=== PATIENT | male | born 2000 | race African-American/Black ===

== ENCOUNTER 2021-10-20 15:47 | Inpatient (IN) | payer MEDICAID, SELFPAY ==
[~2021-10-20] VITALS: Ht 190.5 cm; Wt 102.7 kg
[2021-10-20] MEDS ORDERED: MORPHINE 4 MG/ML 1ML VIAL/SYRINGE (J2270) IV ONE (20:20)
[2021-10-20] MEDS ORDERED: ONDANSETRON 4MG/2ML VIAL IV ONE (20:20)
[2021-10-20] MEDS ORDERED: NS 1,000 ML IV ONE (20:20)
[2021-10-20 21:11] LABS: BASO % 0.3 % (0.0-1.0); EOS % 0.1 % (0.0-3.0); LYMPH # 1.9 10^3/uL (1.5-5.0); LYMPH % 18.8 % (24.0-44.0); MEAN CORPUSCULAR HEMOGLOBIN 30.7 pg (27.0-33.0); MEAN CORPUSCULAR HGB CONC 33.3 g/dl (32.0-36.5); MONO # 0.9 10^3/uL (0.0-0.8); MONO % 8.9 % (2.0-8.0); NEUTROPHILS # 7.1 10^3/uL (1.5-8.5); NEUTROPHILS % 71.7 % (36.0-66.0); PLATELET COUNT, AUTOMATED 222 10^3/uL (150-450); RED BLOOD COUNT 4.89 10^6/uL (4.30-6.10); WHITE BLOOD COUNT 9.9 10^3/uL (4.0-10.0)
[2021-10-20 21:19] LABS: INR 1.01; PARTIAL THROMBOPLASTIN TIME 26.5 SECONDS (25.9-37.0); PROTHROMBIN TIME 13.7 SECONDS (12.7-14.5)
[2021-10-20 21:29] LABS: BLOOD UREA NITROGEN 11 MG/DL (7-18); CALCIUM LEVEL 9.9 MG/DL (8.5-10.1); CARBON DIOXIDE LEVEL 27 MEQ/L (21-32); CHLORIDE LEVEL 105 MEQ/L (98-107); CREATININE FOR GFR 1.01 MG/DL (0.70-1.30); GLUCOSE, FASTING 94 MG/DL (70-100); POTASSIUM SERUM 4.3 MEQ/L (3.5-5.1); SODIUM LEVEL 139 MEQ/L (136-145)
[2021-10-20] MEDS ORDERED: ACETAMINOPHEN TAB 650MG DOSE (2X325MG) PO PRN (21:45)
[2021-10-20] MEDS ORDERED: MORPHINE 2 MG/ML 1ML VIAL (J2270) IV PRN (21:45)
[2021-10-20] MEDS ORDERED: HOME MED LIST COMPLETE! XX SCH (23:00)
[2021-10-21] MEDS ORDERED: KETOROLAC 30 MG/ML 1ML VIAL IV PRN (01:50)
[2021-10-21] MEDS: MORPHINE 2 MG/ML 1ML VIAL (J2270) IV PRN ×2 (02:02→07:42)
[2021-10-21] MEDS: HEPARIN SOD (PORCINE) 5000UNITS/ML 1ML VIAL/SYRINGE SC SCH ×2 (05:16→21:33)
[2021-10-21 06:16] LABS: HEMATOCRIT 43.2 % (42.0-52.0); HEMOGLOBIN 14.4 g/dl (13.5-17.5); MEAN CORPUSCULAR HEMOGLOBIN 30.4 pg (27.0-33.0); MEAN CORPUSCULAR HGB CONC 33.3 g/dl (32.0-36.5); MEAN CORPUSCULAR VOLUME 91.1 fl (80.0-96.0); PLATELET COUNT, AUTOMATED 215 10^3/uL (150-450); RED BLOOD COUNT 4.74 10^6/uL (4.30-6.10); WHITE BLOOD COUNT 8.8 10^3/uL (4.0-10.0)
[2021-10-21 06:30] LABS: ALBUMIN 3.8 GM/DL (3.2-5.2); ALT/SGPT 35 U/L (12-78); BILIRUBIN,TOTAL 0.7 MG/DL (0.2-1.0); BLOOD UREA NITROGEN 11 MG/DL (7-18); CALCIUM LEVEL 9.3 MG/DL (8.5-10.1); CARBON DIOXIDE LEVEL 28 MEQ/L (21-32); CHLORIDE LEVEL 103 MEQ/L (98-107); CREATININE FOR GFR 0.97 MG/DL (0.70-1.30); GLUCOSE, FASTING 135 MG/DL (70-100); POTASSIUM SERUM 3.9 MEQ/L (3.5-5.1); SODIUM LEVEL 138 MEQ/L (136-145); TOTAL PROTEIN 7.2 GM/DL (6.4-8.2)
[2021-10-21] MEDS: oxyCODONE 5MG TAB PO PRN ×2 (10:51→19:38)
[2021-10-21 14:00] VITALS: BP 144/86
[2021-10-21] MEDS ORDERED: LIDOCAINE 2% 100MG/5ML SDV (FOR ANES.) As Ordered ONE (16:00)
[2021-10-21] MEDS ORDERED: ONDANSETRON 4MG/2ML VIAL As Ordered ONE (16:00)
[2021-10-21] MEDS ORDERED: propofoL 200 MG/20 ML VIAL As Ordered ONE ×2 (16:00→16:21)
[2021-10-21] MEDS ORDERED: ACETAMINOPHEN 1000MG 100ML IV BTL (OFIRMEV) (J0131 PER 10MG) As Ordered ONE ×2 (16:00→18:01)
[2021-10-21] MEDS ORDERED: dexameTHASONE 4 MG/ML 1ML VIAL (J1100 PER 1MG) As Ordered ONE (16:00)
[2021-10-21] MEDS ORDERED: KETOROLAC 60MG 2ML VIAL As Ordered ONE (16:00)
[2021-10-21] MEDS ORDERED: MIDAZOLAM INJ 2MG/2ML VIAL (J2250 PER 1MG) As Ordered ONE (16:01)
[2021-10-21] MEDS ORDERED: fentaNYL 100 MCG/2 ML INJECTION As Ordered ONE ×2 (16:01→16:43)
[2021-10-21] MEDS ORDERED: BUPIVACAINE HCL 0.25% 10ML VIAL As Ordered ONE (16:22)
[2021-10-21] MEDS ORDERED: BUPIVACAINE/EPIN 0.25% 30 ML VIAL As Ordered ONE (16:22)
[2021-10-21] MEDS ORDERED: ceFAZolin 2 GM/D5W 50 ML IV BAG (J0690 PER 500MG) As Ordered ONE (16:29)
[2021-10-21] MEDS ORDERED: HYDROmorphone HCL 2MG/ML 1ML VIAL As Ordered ONE (17:17)
[2021-10-21] MEDS ORDERED: LR 1,000 ML IV SCH (18:55)
[2021-10-21] MEDS ORDERED: fentaNYL 100 MCG/2 ML INJECTION IV PRN (18:55)
[2021-10-21] MEDS ORDERED: ONDANSETRON 4MG/2ML VIAL IV PRN (18:55)
[2021-10-21] MEDS ORDERED: oxyCODONE 5MG TAB PO PRN (18:55)
[2021-10-21 20:30] VITALS: BP 112/66
[2021-10-21 21:30] VITALS: BP 116/58
[2021-10-21 22:30] VITALS: BP 126/68
[2021-10-21 23:30] VITALS: BP 143/99
[2021-10-22] VITALS (7 sets, daily range): BP systolic 121–158; BP diastolic 74–96; O2SAT 96–97
[2021-10-22] MEDS: oxyCODONE 5MG TAB PO PRN ×3 (01:32→19:43)
[2021-10-22] MEDS: MORPHINE 2 MG/ML 1ML VIAL (J2270) IV PRN ×2 (03:01→07:42)
[2021-10-22] MEDS: HEPARIN SOD (PORCINE) 5000UNITS/ML 1ML VIAL/SYRINGE SC SCH ×3 (06:18→21:15)
[2021-10-22 07:46] LABS: BASO % 0.1 % (0.0-1.0); EOS % 0.1 % (0.0-3.0); HEMATOCRIT 41.2 % (42.0-52.0); LYMPH # 2.5 10^3/uL (1.5-5.0); LYMPH % 15.1 % (24.0-44.0); MEAN CORPUSCULAR HEMOGLOBIN 30.8 pg (27.0-33.0); MEAN CORPUSCULAR VOLUME 90.5 fl (80.0-96.0); MONO # 1.2 10^3/uL (0.0-0.8); MONO % 7.2 % (2.0-8.0); NEUTROPHILS # 12.7 10^3/uL (1.5-8.5); NEUTROPHILS % 77.2 % (36.0-66.0); PLATELET COUNT, AUTOMATED 212 10^3/uL (150-450); RED BLOOD COUNT 4.55 10^6/uL (4.30-6.10); WHITE BLOOD COUNT 16.4 10^3/uL (4.0-10.0)
[2021-10-22 08:08] LABS: BLOOD UREA NITROGEN 10 MG/DL (7-18); CALCIUM LEVEL 8.9 MG/DL (8.5-10.1); CARBON DIOXIDE LEVEL 27 MEQ/L (21-32); CHLORIDE LEVEL 102 MEQ/L (98-107); CREATININE FOR GFR 1.05 MG/DL (0.70-1.30); GLUCOSE, FASTING 116 MG/DL (70-100); MAGNESIUM LEVEL 1.9 MG/DL (1.8-2.4); POTASSIUM SERUM 3.9 MEQ/L (3.5-5.1); SODIUM LEVEL 136 MEQ/L (136-145)
[2021-10-22] MEDS: ASPIRIN 81MG ENTERIC TABLET PO SCH (09:05)
[2021-10-22] MEDS: HYDROMORPHONE HCL 0.5 MG/ 0.5 ML SYRINGE (J1170 PER 1) IV PRN ×3 (10:20→22:05)
[2021-10-23] MEDS: oxyCODONE 5MG TAB PO PRN ×2 (00:11→08:40)
[2021-10-23] MEDS: HYDROMORPHONE HCL 0.5 MG/ 0.5 ML SYRINGE (J1170 PER 1) IV PRN (02:53)
[2021-10-23 06:00] VITALS: BP 148/78
[2021-10-23] MEDS: HEPARIN SOD (PORCINE) 5000UNITS/ML 1ML VIAL/SYRINGE SC SCH (06:38)
[2021-10-23 08:01] LABS: BASO % 0.2 % (0.0-1.0); EOS % 0.2 % (0.0-3.0); HEMATOCRIT 41.3 % (42.0-52.0); HEMOGLOBIN 13.6 g/dl (13.5-17.5); LYMPH # 1.8 10^3/uL (1.5-5.0); LYMPH % 15.3 % (24.0-44.0); MEAN CORPUSCULAR HGB CONC 32.9 g/dl (32.0-36.5); MONO # 1.5 10^3/uL (0.0-0.8); MONO % 12.8 % (2.0-8.0); NEUTROPHILS # 8.2 10^3/uL (1.5-8.5); NEUTROPHILS % 70.9 % (36.0-66.0); PLATELET COUNT, AUTOMATED 201 10^3/uL (150-450); RED BLOOD COUNT 4.54 10^6/uL (4.30-6.10); WHITE BLOOD COUNT 11.6 10^3/uL (4.0-10.0)
[2021-10-23 08:25] LABS: BLOOD UREA NITROGEN 10 MG/DL (7-18); CALCIUM LEVEL 9.7 MG/DL (8.5-10.1); CARBON DIOXIDE LEVEL 26 MEQ/L (21-32); CHLORIDE LEVEL 100 MEQ/L (98-107); CREATININE FOR GFR 0.93 MG/DL (0.70-1.30); GLUCOSE, FASTING 105 MG/DL (70-100); MAGNESIUM LEVEL 2.1 MG/DL (1.8-2.4); POTASSIUM SERUM 3.9 MEQ/L (3.5-5.1); SODIUM LEVEL 134 MEQ/L (136-145)
[2021-10-23] MEDS: ASPIRIN 81MG ENTERIC TABLET PO SCH (08:39)
[2021-10-23] MEDS ORDERED: ASPI-551 PO (10:12)
[2021-10-23] MEDS ORDERED: OXYC-517 PO ×2 (10:12→10:18)
== END 2021-10-23 11:50 | disposition home health service (06) | DRG 317 ==
LOC: M ED 15:47 → M ED INP 21:41 → M MS5PR 10-21 00:05
PROVIDERS: ADMIT Family Medicine; ATTEND Internal Medicine
PROC: 0LQR0ZZ Repair Left Knee Tendon, Open Approach (ICD-10-PCS; principal; 2021-10-21 15:00)
DX: S86.812A Strain of other muscle(s) and tendon(s) at lower leg level, left leg, initial encounter (principal); W50.0XXA Accidental hit or strike by another person, initial encounter; Y93.67 Activity, basketball; Y92.830 Public park as the place of occurrence of the external cause; Z20.822 Contact with and (suspected) exposure to COVID-19; D72.829 Elevated white blood cell count, unspecified

== ENCOUNTER → 2021-10-27 | Outpatient (CLI) | payer MEDICAID ==
[~2021-10-27] MED LIST: ASPI-551 PO; ASPI81CH8 PO; CELE100C PO; HYDR-3715 PO; OXYC-517 PO; PERCOCET PO
== END ==
LOC: M SOG 15:00
PROVIDERS: ATTEND Orthopaedic Surgery
DX: Z47.89 Encounter for other orthopedic aftercare (principal); M79.89 Other specified soft tissue disorders

== ENCOUNTER 2021-12-03 01:04 | Emergency (ER) | payer MEDICAID ==
[~2021-12-03] VITALS: Ht 190.5 cm; Wt 109.1 kg
[~2021-12-03 01:04] MED LIST changes: -ASPI81CH8 PO; -CELE100C PO; -HYDR-3715 PO; -PERCOCET PO
[2021-12-03] MEDS ORDERED: HYDR-3715 PO (13:04)
[2021-12-03 13:12] VITALS: BP 135/83
== END 2021-12-03 13:40 | disposition home or self-care (01) ==
LOC: M ED 01:04
DX: M25.562 Pain in left knee (principal); M25.462 Effusion, left knee; S86.812A Strain of other muscle(s) and tendon(s) at lower leg level, left leg, initial encounter; M70.42 Prepatellar bursitis, left knee; W01.0XXA Fall on same level from slipping, tripping and stumbling without subsequent striking against object, initial encounter; Y92.009 Unspecified place in unspecified non-institutional (private) residence as the place of occurrence of the external cause; Y93.9 Activity, unspecified; Y99.9 Unspecified external cause status

== ENCOUNTER → 2021-12-07 | Outpatient (CLI) | payer MEDICAID ==
[~2021-12-07] MED LIST changes: +HYDR-3715 PO
== END ==
LOC: M LABSMTC 12:30
PROVIDERS: ATTEND Orthopaedic Surgery
DX: Z01.812 Encounter for preprocedural laboratory examination (principal); Z20.822 Contact with and (suspected) exposure to COVID-19

== ENCOUNTER 2021-12-08 11:13 | Observation (INO) | payer BC, MEDICAID ==
[~2021-12-08] VITALS: Ht 190.5 cm; Wt 121.5 kg
[~2021-12-08 11:13] MED LIST changes: +LIDOCAINE 1% MDV 20ML VIAL SQ PRN; +LIDOCAINE 2% 100MG/5ML SDV (FOR ANES.) As Ordered ONE; +MIDAZOLAM INJ 2MG/2ML VIAL (J2250 PER 1MG) As Ordered ONE; +ONDANSETRON 4MG/2ML VIAL As Ordered ONE; +ceFAZolin SOD 2 GM in IV 1 EA IV ONE; +dexameTHASONE 4 MG/ML 1ML VIAL (J1100 PER 1MG) As Ordered ONE; +fentaNYL 100 MCG/2 ML INJECTION As Ordered ONE; +propofoL 200 MG/20 ML VIAL As Ordered ONE
[2021-12-08] MEDS ORDERED: LR 1,000 ML IV ONE (12:35)
[2021-12-08] MEDS ORDERED: TRANEXAMIC ACID 100 MG/ML 10ML VIAL As Ordered ONE (13:09)
[2021-12-08] MEDS ORDERED: ACETAMINOPHEN 1000MG 100ML IV BTL (OFIRMEV) (J0131 PER 10MG) As Ordered ONE (13:10)
[2021-12-08] MEDS ORDERED: PHENYLephrine 500MCG 5ML (100MCG/ML) SYRINGE As Ordered ONE (13:18)
[2021-12-08] MEDS ORDERED: KETOROLAC 60MG 2ML VIAL As Ordered ONE (13:22)
[2021-12-08] MEDS ORDERED: fentaNYL 100 MCG/2 ML INJECTION As Ordered ONE ×2 (13:33→13:59)
[2021-12-08] MEDS ORDERED: VANCOMYCIN 1000MG/20ML VIAL As Ordered ONE (14:32)
[2021-12-08] MEDS ORDERED: HYDROmorphone HCL 2MG/ML 1ML VIAL As Ordered ONE (14:37)
[2021-12-08] MEDS ORDERED: BUPIVACAINE LIPOSOME/PF 1.3% 20ML VIAL (13.3MG/ML)(EXPAREL) As Ordered ONE (15:05)
[2021-12-08] MEDS ORDERED: BUPIVACAINE HCL 0.25% 10ML VIAL As Ordered ONE (15:08)
[2021-12-08] MEDS ORDERED: ESMOLOL INJ 100MG/10ML VIAL As Ordered ONE (15:41)
[2021-12-08] MEDS ORDERED: oxyCODONE 5MG TAB PO PRN (16:10)
[2021-12-08] MEDS ORDERED: ONDANSETRON 4MG/2ML VIAL IV PRN (16:10)
[2021-12-08] MEDS ORDERED: LR 1,000 ML IV SCH ×2 (16:10→16:20)
[2021-12-08] MEDS ORDERED: MEPERIDINE INJ 25 MG/ML VIAL (J2175) IV PRN (16:10)
[2021-12-08] MEDS: fentaNYL 100 MCG/2 ML INJECTION IV PRN ×2 (16:30→17:04)
[2021-12-08 17:25] VITALS: BP 141/86
[2021-12-08] MEDS: ACETAMINOPHEN TAB 650MG DOSE (2X325MG) PO SCH ×2 (17:38→23:28)
[2021-12-08 17:55] VITALS: BP 121/68
[2021-12-08 18:25] VITALS: BP 150/83
[2021-12-08 20:00] VITALS: BP 149/83
[2021-12-08] MEDS: ceFAZolin SOD 2 GM in IV 1 EA IV SCH (20:44)
[2021-12-08] MEDS: PERCOCET 5MG/325MG TAB PO PRN (20:56)
[2021-12-08 21:00] VITALS: BP 150/89
[2021-12-08 22:00] VITALS: BP 146/86; O2SAT 99
[2021-12-09 02:00] VITALS: BP 137/93
[2021-12-09] MEDS: MORPHINE 4 MG/ML 1ML VIAL/SYRINGE IV PRN ×2 (02:09→06:10)
[2021-12-09] MEDS: PERCOCET 5MG/325MG TAB PO PRN ×3 (05:14→22:10)
[2021-12-09] MEDS: ceFAZolin SOD 2 GM in IV 1 EA IV SCH (05:14)
[2021-12-09] MEDS: ACETAMINOPHEN TAB 650MG DOSE (2X325MG) PO SCH ×4 (05:15→23:05)
[2021-12-09 06:00] VITALS: BP 145/94
[2021-12-09] MEDS ORDERED: MORPHINE 4 MG/ML 1ML VIAL/SYRINGE IV PRN (08:40)
[2021-12-09 09:00] VITALS: O2SAT 100
[2021-12-09] MEDS ORDERED: CelecoXIB (CeleBREX) 100 MG CAP PO ONE (09:00)
[2021-12-09] MEDS: HYDROMORPHONE HCL 0.5 MG/ 0.5 ML SYRINGE (J1170 PER 1) IV PRN ×2 (10:58→17:55)
[2021-12-09] MEDS: CelecoXIB (CeleBREX) 100 MG CAP PO SCH (20:41)
[2021-12-09] MEDS: ASPIRIN 81 MG CHEW TABLET PO SCH (20:41)
[2021-12-09 21:13] VITALS: BP 145/88
[2021-12-10] MEDS: HYDROMORPHONE HCL 0.5 MG/ 0.5 ML SYRINGE (J1170 PER 1) IV PRN ×2 (00:56→08:48)
[2021-12-10] MEDS: PERCOCET 5MG/325MG TAB PO PRN ×2 (04:36→15:17)
[2021-12-10] MEDS: ACETAMINOPHEN TAB 650MG DOSE (2X325MG) PO SCH ×3 (05:44→18:22)
[2021-12-10 06:00] VITALS: BP 143/97
[2021-12-10] MEDS: CelecoXIB (CeleBREX) 100 MG CAP PO SCH (08:47)
[2021-12-10] MEDS: ASPIRIN 81 MG CHEW TABLET PO SCH (08:47)
[2021-12-10] MEDS ORDERED: ASPI81CH8 PO (09:13)
[2021-12-10] MEDS ORDERED: PERCOCET PO (09:13)
[2021-12-10] MEDS ORDERED: CELE100C PO (09:13)
[2021-12-10 14:00] VITALS: BP 142/97
== END 2021-12-10 19:00 | disposition home or self-care (01) ==
LOC: M SDC 11:13 → M MS5PR 11:14 → M SDC 12-10 19:00
PROVIDERS: ADMIT Orthopaedic Surgery; ATTEND Orthopaedic Surgery
DX: S86.812A Strain of other muscle(s) and tendon(s) at lower leg level, left leg, initial encounter (principal); X58.XXXA Exposure to other specified factors, initial encounter; Y92.89 Other specified places as the place of occurrence of the external cause; Y93.89 Activity, other specified; Y99.8 Other external cause status
CPT/HCPCS: 27380; C1713; C9290; J0131; J0690; J1100; J1170; J2250; J2270; J2370; J2405; J3010; J3370

== ENCOUNTER → 2021-12-14 | Outpatient (CLI) | payer MEDICAID ==
[~2021-12-14] MED LIST changes: +ASPI81CH8 PO; +CELE100C PO; -LIDOCAINE 1% MDV 20ML VIAL SQ PRN; -LIDOCAINE 2% 100MG/5ML SDV (FOR ANES.) As Ordered ONE; -MIDAZOLAM INJ 2MG/2ML VIAL (J2250 PER 1MG) As Ordered ONE; -ONDANSETRON 4MG/2ML VIAL As Ordered ONE; +PERCOCET PO; -ceFAZolin SOD 2 GM in IV 1 EA IV ONE; -dexameTHASONE 4 MG/ML 1ML VIAL (J1100 PER 1MG) As Ordered ONE; -fentaNYL 100 MCG/2 ML INJECTION As Ordered ONE; -propofoL 200 MG/20 ML VIAL As Ordered ONE
== END ==
LOC: M SOG 14:26
PROVIDERS: ATTEND Orthopaedic Surgery
DX: S86.812A Strain of other muscle(s) and tendon(s) at lower leg level, left leg, initial encounter (principal); X58.XXXA Exposure to other specified factors, initial encounter; Y92.9 Unspecified place or not applicable; Y93.9 Activity, unspecified; Y99.9 Unspecified external cause status

== ENCOUNTER 2022-05-02 14:30 | Outpatient (RCR) | payer BC | END 2022-05-04 | LOC: M PT 14:30 | PROVIDERS: ATTEND Orthopaedic Surgery | DX: S86.812D Strain of other muscle(s) and tendon(s) at lower leg level, left leg, subsequent encounter (principal) ==